=== PATIENT | male | born 1990 | race Caucasian/White ===

== ENCOUNTER 2016-05-03 13:13 | Emergency (ER) | payer OTHER ==
[~2016-05-03] VITALS: Wt 88.0 kg
--- NOTE | 2016-05-03 15:01 | ERD ---
ER Documentation Chief Complaint Date/Time DATE: 05/03/16 TIME: 14:45 Chief Complaint LEFT PINKY FINGER INJURY CRUSHED INJURY NO DEFORMITY NOTED. HPI 25 y/o male presents to ED for left pinky/fifth/knuckle pain and injury that happened at around 12:30 PM while he was working. Patient stated that a was accidentally pushed towards his left volar pinky/fifth finger. Complains of pain in the injury site that is described as achy nonradiating with a pain rate of 3/10 at this time. Patient stated that this has been putting an ice in it. Denies headache, loss of consciousness, dizziness, blurry vision, changes in vision, photophobia, facial pain, ear pain, throat pain, difficulty swallowing, neck pain, shoulder pain, chest pain, cough, hemoptysis, abdominal pain, back pain, loss of appetite, nausea, vomiting, hematochezia, diarrhea, constipation, urinary symptoms, bladder and bowel incontinences, extremity weakness, extremity tenderness, numbness or tingling sensation, difficulty walking, recent travel, recent exposure to illness, recent antibiotic use in the last 3 months, fever, chills. Allergy: NKA PMH: Denies. Medications: Denies. Surgery: Appendectomy. Family history: Denies. Primary Social History: Works at the [employer]. Right-handed. Quit smoking cigarettes 6 years ago. Occasionally drinks alcoholic beverages. Denies use of illegal drugs. ROS All systems reviewed and are negative except as per history of present illness. Physical Exam Vitals Vital Signs Date Time Temp Pulse Resp B/P Pulse Ox O2 Delivery O2 Flow Rate FiO2 05/03/16 13:15 97.2 93 20 127/71 98 Physical Exam CONSTITUTIONAL: Well-appearing; well-nourished; in no apparent distress. HEAD: Normocephalic; atraumatic. EYES: Conjunctiva clear, sclera non-icteric, EOM intact. PERRL Ears: Hearing intact. EACs clear, TMs non-bulging, non-inflamed, translucent & mobile, ossicles normal appearance, No obstructions, no erythema, no discharges Nose: No obstructions. No polyps. No external lesions. Mucosa non-inflamed. No external lesions, septum and turbinates normal. No rhinorrhea. No discharges. Frontal sinus is non-tender to palpation. Maxillary sinus is non-tender to palpation. MOUTH: Moist mucous membranes, no lesion, no obstructions, no vesicles, no thrush, patent airway Throat: Uvula in midline. Right tonsil is +1 with no erythema, no exudate. Left tonsil is +1 with no erythema, no exudate. Tolerating secretions well. Good gag reflex. Patent airway. Neck: Supple, without lesions, bruits, or adenopathy. No mass. Thyroid non- enlarged and non-tender to palpation. CHEST: Symmetrical chest. Respirations even and not labored. No retractions noted. CARDIOVASCULAR: Normal S1, S2. RRR. No murmurs, gallops. RESPIRATORY: Normal chest excursion with respiration; breath sounds clear and equal bilaterally; no wheezes, rhonchi, or rales. Breathing even and unlabored. Speaking in clear, full, and complete sentences w/ ease. ABDOMEN: Normal bowel sounds normal. Soft, round, non-distended, non-guarding, no tenderness, no rebound, no organomegaly, no masses, no pulsating abdominal mass. No hernia. No peritoneal signs. : No CVA tenderness. BACK: Symmetrical shoulder. Spine is midline without deformity, tenderness. No evidence of trauma or deformity. PELVIS: Stable pelvis. No evidence of trauma or deformity. MUSCULOSKELETAL: Normal gait and station. No misalignment, asymmetry, crepitation, defects, tenderness, masses, effusions, decreased range of motion, instability, atrophy or abnormal strength or tone in the head, neck, spine, ribs , pelvis or extremities except left pinky/fifth finger (knuckle area swelling with no obvious deformity/discoloration. Has full function of left hand/finger with good flexion and extension with a score of 5/5. Has good color. Circulation sensation is intact. No neurovascular deficits. Left wrist is unremarkable. Left elbow is unremarkable. Left shoulder is unremarkable. No calf tenderness. NEUROVASCULAR: Distal pulses are present. Pedal pulse are present, equal, and normal. Capillary refills are < 2 seconds. NEUROLOGIC: Alert and oriented x4. Speaks full and clear sentences. Cranial Nerves II-XII normal. Sensation to pain, touch, and proprioception normal. Grossly unremarkable. No neurologic deficits. Romberg test is negative. PSYCHOLOGICAL: The patients mood and manner are appropriate. No hallucinations , delusions. Not SI. Not HI. Has the capacity to decide for self SKIN: Normal for age and ethnicity; warm; dry; good turgor; no apparent lesions or exudates. No rashes, hives, discoloration. Intact. Procedures/MDM Examination: Please see physical examination. Disease process, medical treatment was explained to the patient and family member. They verbalized understanding and agreed with the diagnostic tests, medical treatment, and follow-up care. Radiology: Left hand: Acute mildly displaced oblique fracture involving the fifth proximal phalanx. Case, medical management was discussed with supervising emergency room physician , Dr. Denver Thomas who agreed with my present treatment and follow-up care. Treatment: Finger splint. No neurovascular deficits prior to and after the application of finger splint. Re-evaluation: Denies pain. No neurovascular deficits. Circulation sensation is intact. Consultation: None. Differential diagnosis: Fracture versus contusion versus sprain Medical decision [id number] y/o male presents to ED for left pinky/fifth/ knuckle pain and injury that happened at around 12:30 PM while he was working. Patient stated that a was accidentally pushed towards his left volar pinky/ fifth finger. Complains of pain in the injury site that is described as achy nonradiating with a pain rate of 3/10 at this time. Patient stated that this has been putting an ice in it. Patient's complaint, patient's history, my physical findings, diagnostic test results are consistent with my final diagnosis of mildly displaced oblique fracture involving the fifth proximal phalanx. Patient placed in finger splint. Instructed to follow-up with his PCP in the next 24-48 hours. Instructed to have his PCP referred him to orthopedic doctor in the next 24-48 hours. Medications prescribed are the following: Motrin. Patient and family member are made aware of the side effects and adverse reactions of the medications prescribed. Instructed on when to seek emergent and medical attention in case allergic/anaphylactic reactions or severe side effects and or adverse reactions to medications. Patient and family member verbalized understanding. Patient instructed Instructed to follow-up with his PCP in 24-48 hours. PCP to refer patient to orthopedic doctor in the next 24-48 hours. Patient was also advised to see his orthopedic doctor for re-evaluation in the next 24-48 hours. Instructed to Call 911 for chest pain, shortness of breath. Advised to come back here in ED as soon as possible for severity of symptoms which includes but not limited to: any new symptoms; shortness of breath/difficulty of breathing; cardiovascular changes; severe gastrointestinal symptoms; signs and symptoms of bleeding and or infection; signs of compartment syndrome/neurovascular changes; neurological changes/deficits. Patient and family member verbalized understanding. Upon discharge, patient is alert and oriented x 4, speaks full and clear sentences, denies pain, has no neurological deficits, has no neurovascular deficits, difficulty of breathing. Breathing even and unlabored. Lung sounds are clear to auscultation. Not in distress. Appears comfortable. Ambulatory with steady gait. Appears satisfied with care provided here in ED. Departure Diagnosis: Primary Impression: Pain of finger Laterality: left Qualified Code: M79.645 - Pain of finger of left hand Additional Impression: Fracture Condition: Good Additional Instructions: Instructed to follow-up with his PCP in 24-48 hours. PCP to refer patient to orthopedic doctor in the next 24-48 hours. Patient was also advised to see his orthopedic doctor for re-evaluation in the next 24-48 hours. Instructed to Call 911 for chest pain, shortness of breath. Advised to come back here in ED as soon as possible for severity of symptoms which includes but not limited to: any new symptoms; shortness of breath/difficulty of breathing; cardiovascular changes; severe gastrointestinal symptoms; signs and symptoms of bleeding and or infection; signs of compartment syndrome/neurovascular changes; neurological changes/deficits. Patient and family member verbalized understanding. EMA TONY May 03, 2016 15:01
--- NOTE | 2016-05-03 15:19 | RADRPT ---
PROCEDURE: XR left hand. CLINICAL INDICATION: Hand pain TECHNIQUE: Three views are available for review. COMPARISON: No prior studies are available for comparison. FINDINGS: There is an acute mildly displaced oblique fracture involving the fifth proximal phalanx. The osseous structures are otherwise normal in mineralization, architecture and alignment. No osse ous lesion is identified. The joints are unremarkable. The soft tissues are unremarkable. IMPRESSION: Acute mildly displaced oblique fracture involving the fifth proximal phalanx RPTAT: HGDB .Jesse Samson MD, Date Time Electronically viewed and signed by .Jesse Samson MD, on 05/03/2016 15:19 .B/
[2016-05-03] MEDS ORDERED: IBUP800T25 PO (15:49)
== END 2016-05-03 16:05 | disposition home or self-care (01) ==
LOC: FTE 13:13
DX: S62.617A Displaced fracture of proximal phalanx of left little finger, initial encounter for closed fracture (principal); W23.1XXA Caught, crushed, jammed, or pinched between stationary objects, initial encounter; Y92.9 Unspecified place or not applicable; Z87.891 Personal history of nicotine dependence